=== PATIENT | female | born 1940 | race Caucasian/White ===

== ENCOUNTER 2017-01-29 09:14 | Inpatient (IN) | payer OTHER ==
[~2017-01-29] VITALS: Ht 157.5 cm; Wt 84.0 kg
[~2017-01-29 09:14] MED LIST: PERCOCET 5/31 TABLET PO
[2017-03-01] MEDS ORDERED: BENAZEPRIL HCL40 MG PO (10:25)
[2017-03-01] MEDS ORDERED: ASCORBIC ACID500 M3 PO (10:25)
[2017-03-01] MEDS ORDERED: TOPROL XL100 MG PO (10:26)
[2017-03-01] MEDS ORDERED: LIPITOR20 MG PO (10:26)
[2017-03-01] MEDS ORDERED: LASIX20 MG PO (10:26)
[2017-03-01] MEDS ORDERED: NORVASC5 MG PO (10:26)
[2017-03-01] MEDS ORDERED: LANSOPRAZOLE15 MG PO (10:27)
[2017-03-01] MEDS ORDERED: ASPIR 8181 M1 PO (10:27)
[2017-03-01] MEDS ORDERED: GABAPENTIN100 MG PO (10:27)
[2017-03-01] MEDS ORDERED: VITAMIN D35000 UNIT PO (10:28)
[2017-03-01] MEDS ORDERED: GLUCOSAMINE CO1 EAC3 PO (10:28)
[2017-03-01] MEDS ORDERED: ATIVAN0.5 MG PO (10:28)
[2017-03-01] MEDS ORDERED: IBUPROFEN200 M1 PO (10:29)
[2017-03-04] MEDS ORDERED: LORTAB 5-325 M1 EACH PO (14:28)
[2017-07-02] MEDS ORDERED: FEMARA2.5 MG PO (14:33)
[2017-07-02] MEDS ORDERED: TYLENOL EXTRA500 MG PO (14:48)
[2017-07-02] MEDS ORDERED: IRON325 M1 PO (14:49)
[2017-07-02] MEDS ORDERED: COMBIGAN O20 DROP/5 RIGHT EYE (14:56)
[2017-07-02] MEDS ORDERED: LUMIGAN 0.50 DROP/22 BOTH EYES (14:56)
[2017-07-08 20:43] VITALS: BP 165/71
[2017-07-08 23:41] VITALS: BP 120/57
[2017-07-09 05:23] VITALS: BP 142/65
[2017-07-09 06:39] LABS: HEMATOCRIT 39.2 % (36.0-46.0); HEMOGLOBIN 13.3 G/DL (11.9-15.5); MCV 98.5 FL (83-99)
[2017-07-09 06:40] LABS: CHLORIDE 104 MEQ/L (99-109); CREATININE 0.6 MG/DL (0.6-1.3); GFR ESTIMATE (CALCULATED) > 59 mL/min/; GLUCOSE 109 mg/dL (70-99); POTASSIUM 3.9 MEQ/L (3.7-5.4); SODIUM 137 MEQ/L (136-147); UREA NITROGEN (BUN) 18 mg/dL (9-23)
[2017-07-09 08:26] VITALS: BP 146/62
[2017-07-09 15:53] VITALS: BP 170/71
[2017-07-10 00:15] VITALS: BP 160/71
[2017-07-10 05:50] LABS: HEMATOCRIT 34.6 % (36.0-46.0); HEMOGLOBIN 11.7 G/DL (11.9-15.5); MCV 96.1 FL (83-99)
[2017-07-10 07:57] VITALS: BP 186/77
[2017-07-10 23:46] VITALS: BP 116/54
[2017-07-11 07:40] VITALS: BP 131/62
[2017-07-11] MEDS ORDERED: HYDROCODON-ACE1 EAC7 PO (09:13)
[2017-07-11] MEDS ORDERED: ELIQUIS2.5 MG PO (09:13)
== END 2017-07-11 14:19 | DRG 470 ==
LOC: 2SOUTH → ENRESERV 07-07 22:44 → 2SOUTH 07-08 10:03 → 3EAST 07-08 17:42
PROVIDERS: Orthopaedic Surgery
PROC: 0SRC0J9 Replacement of Right Knee Joint with Synthetic Substitute, Cemented, Open Approach (ICD-10-PCS; principal; 2017-07-08)
DX: M17.11 Unilateral primary osteoarthritis, right knee (principal); I10 Essential (primary) hypertension; E78.1 Pure hyperglyceridemia; K21.9 Gastro-esophageal reflux disease without esophagitis; G47.30 Sleep apnea, unspecified; Z85.3 Personal history of malignant neoplasm of breast; Z79.82 Long term (current) use of aspirin; Z87.891 Personal history of nicotine dependence; Z88.2 Allergy status to sulfonamides
CPT/HCPCS: 71045; 80048; 85014; 85018; C1713; J0131; J0690; J1100; J1885; J2250; J2405; J2795; J3010; J7050; Q0175

== ENCOUNTER 2017-03-04 06:37 | Day surgery (SDC) | payer OTHER ==
[~2017-03-04] VITALS: Ht 157.5 cm; Wt 85.7 kg
[~2017-03-04 06:37] MED LIST changes: +ASCORBIC ACID500 M3 PO; +ASPIR 8181 M1 PO; +ATIVAN0.5 MG PO; +BENAZEPRIL HCL40 MG PO; +GABAPENTIN100 MG PO; +GLUCOSAMINE CO1 EAC3 PO; +IBUPROFEN200 M1 PO; +LANSOPRAZOLE15 MG PO; +LASIX20 MG PO; +LIPITOR20 MG PO; +NORVASC5 MG PO; +TOPROL XL100 MG PO; +VITAMIN D35000 UNIT PO
[2017-03-04 11:16] VITALS: BP 173/79
[2017-03-04] MEDS ORDERED: LORTAB 5-325 M1 EACH PO (14:28)
[2017-03-04 16:30] VITALS: BP 176/81
[2017-03-04 17:42] VITALS: BP 166/70
[2017-03-04 18:16] VITALS: BP 160/70
== END 2017-03-04 18:15 | disposition home or self-care (01) ==
LOC: SDC 06:37 → NUC 08:00 → SDC 18:15
DX: C50.412 Malignant neoplasm of upper-outer quadrant of left female breast (principal); Z17.0 Estrogen receptor positive status [ER+]; I10 Essential (primary) hypertension; E78.5 Hyperlipidemia, unspecified; K21.9 Gastro-esophageal reflux disease without esophagitis; F41.9 Anxiety disorder, unspecified; G47.33 Obstructive sleep apnea (adult) (pediatric); Z79.82 Long term (current) use of aspirin; Z88.2 Allergy status to sulfonamides
CPT/HCPCS: 78195; 88305; 88307; A9541; J0131; J0690; J1100; J1170; J1200; J2250; J2405; J3010; S0020